=== PATIENT | female | born 1950 | race Native Hawaiian/Other Pacific Islander ===

== ENCOUNTER 2018-10-12 11:20 | Outpatient (CLI) | payer OTHER ==
[2018-10-12 11:43] LABS: PLATELET COUNT 217 K/uL (152-353)
[2018-10-12 11:51] LABS: POTASSIUM 4.3 mmol/L (3.6-5.2)
== END 2018-10-12 19:43 | disposition home or self-care (01) ==
LOC: LABW 11:20
PROVIDERS: Nurse Practitioner Family
DX: R53.83 Other fatigue (principal); E53.8 Deficiency of other specified B group vitamins; D64.9 Anemia, unspecified
CPT/HCPCS: 36415; 80053; 82607; 82746; 83540; 83550; 85027

== ENCOUNTER 2019-03-21 09:23 | Outpatient (CLI) | payer OTHER ==
[2019-03-21 09:39] LABS: PLATELET COUNT 215 K/uL (152-353)
== END 2019-03-21 23:32 | disposition home or self-care (01) ==
LOC: LABW 09:23
PROVIDERS: Internal Medicine
DX: Z00.00 Encounter for general adult medical examination without abnormal findings (principal); K21.9 Gastro-esophageal reflux disease without esophagitis; Z79.899 Other long term (current) drug therapy; R53.81 Other malaise
CPT/HCPCS: 36415; 80053; 80061; 83036; 84443; 85027

== ENCOUNTER 2020-03-20 15:53 | Outpatient (CLI) | payer OTHER | END 2020-03-20 19:51 | disposition home or self-care (01) | LOC: CT 15:53 | PROVIDERS: ATTEND Nurse Practitioner | DX: R10.84 Generalized abdominal pain (principal) ==

== ENCOUNTER 2020-10-20 09:22 | Outpatient (CLI) | payer OTHER ==
[2020-10-20 10:30] LABS: POTASSIUM 3.9 mmol/L (3.6-5.2)
[2020-10-20 10:53] LABS: PLATELET COUNT 159 K/uL (152-353)
== END 2020-10-20 19:31 | disposition home or self-care (01) ==
LOC: LABW 09:22
PROVIDERS: ATTEND Nurse Practitioner Family
DX: Z79.899 Other long term (current) drug therapy (principal); R53.82 Chronic fatigue, unspecified
CPT/HCPCS: 36415; 80053; 80074; 85027; 86480

== ENCOUNTER 2020-11-26 11:25 | Outpatient (CLI) | payer OTHER | END 2020-11-26 21:33 | disposition home or self-care (01) | LOC: MAMMO 11:25 | PROVIDERS: ATTEND Registered Nurse | DX: Z12.31 Encounter for screening mammogram for malignant neoplasm of breast (principal) ==

== ENCOUNTER 2022-03-28 17:17 | Observation (INO) | payer OTHER ==
[2022-03-28] VITALS (9 sets, daily range): BP systolic 106–161; BP diastolic 62–86; TEMP 97.1–99.6; Ht 175.3 cm; Wt 106.6 kg
[~2022-03-28] VITALS: Ht 175.3 cm; Wt 106.6 kg
[2022-03-28 18:26] LABS: PLATELET COUNT 223 K/uL (152-353)
[2022-03-28 18:35] LABS: POTASSIUM 2.8 mmol/L (3.6-5.2)
[2022-03-29] VITALS: BP 155/78; TEMP 99.4
[2022-03-29 04:00] VITALS: BP 157/61; TEMP 98.4
[2022-03-29 05:23] LABS: PLATELET COUNT 177 K/uL (152-353)
[2022-03-29 05:36] LABS: POTASSIUM 3.1 mmol/L (3.6-5.2)
[2022-03-29 08:00] VITALS: BP 155/74; TEMP 98.3
[2022-03-29] MEDS ORDERED: DULO30CA PO (10:48)
[2022-03-29] MEDS ORDERED: DULO60CA2 PO (10:48)
[2022-03-29] MEDS ORDERED: ENBREL25 MG/0.1 IM (10:51)
[2022-03-29 12:19] VITALS: BP 149/69; TEMP 97.9
[2022-03-29] MEDS ORDERED: LEVO250T2 PO (13:20)
[2022-03-29] MEDS ORDERED: CLOP75TA2 PO (13:23)
== END 2022-03-29 14:50 | disposition home or self-care (01) ==
LOC: ED 17:17 → MED/SURG 20:00
PROVIDERS: ADMIT Emergency Medicine Emergency Medical Services; ATTEND Internal Medicine
DX: G45.8 Other transient cerebral ischemic attacks and related syndromes (principal); I10 Essential (primary) hypertension; E66.8 Other obesity; M06.8A Other specified rheumatoid arthritis, other specified site; H53.8 Other visual disturbances; N39.0 Urinary tract infection, site not specified; B96.20 Unspecified Escherichia coli [E. coli] as the cause of diseases classified elsewhere
CPT/HCPCS: 36415; 80048; 80053; 81002; 81015; 83735; 84484; 85027; 87040; 87077; 87086; 87088; 87186; 87635; 93005; 96361; 96365; 96366; 99220; 99284; A9576; G0378; J1956; U0003

== ENCOUNTER 2022-11-23 09:45 | Outpatient (CLI) | payer OTHER ==
[~2022-11-23 09:45] MED LIST: CLOP75TA2 PO; DULO30CA PO; DULO60CA2 PO; ENBREL25 MG/0.1 IM; LEVO250T2 PO
== END 2022-11-23 19:20 | disposition home or self-care (01) ==
LOC: MRI 09:45
PROVIDERS: ATTEND Psychiatry & Neurology Neurology
DX: G45.9 Transient cerebral ischemic attack, unspecified (principal); D32.9 Benign neoplasm of meninges, unspecified
CPT/HCPCS: 36415; 82565; 84520; A9576

== ENCOUNTER 2022-12-14 11:45 | Emergency (ER) | payer OTHER ==
[~2022-12-14] VITALS: Ht 175.3 cm; Wt 99.8 kg
[2022-12-14 12:05] VITALS: BP 139/65; TEMP 98.1
== END 2022-12-14 12:52 | disposition home or self-care (01) ==
LOC: ED 11:45
DX: S61.212A Laceration without foreign body of right middle finger without damage to nail, initial encounter (principal); W26.0XXA Contact with knife, initial encounter; Y92.098 Other place in other non-institutional residence as the place of occurrence of the external cause
CPT/HCPCS: 90715; 99282

== ENCOUNTER 2023-01-24 21:30 | Emergency (ER) | payer OTHER ==
[~2023-01-24] VITALS: Ht 175.3 cm; Wt 104.3 kg
[2023-01-24 21:30] VITALS: BP 133/96; TEMP 97.7
== END 2023-01-25 00:20 | disposition home or self-care (01) ==
LOC: ED 21:30
DX: S09.90XA Unspecified injury of head, initial encounter (principal); W19.XXXA Unspecified fall, initial encounter; G31.9 Degenerative disease of nervous system, unspecified; G93.89 Other specified disorders of brain
CPT/HCPCS: 96372; 99282; J1885